=== PATIENT | male | born 1990 | race Caucasian/White ===

== ENCOUNTER 2018-01-06 03:05 | Emergency (ER) | payer OTHER ==
[~2018-01-06] VITALS: Ht 177.8 cm; Wt 136.1 kg
[~2018-01-06 03:05] MED LIST: AMOXICILLIN500 MG PO; AMOXIL500 MG PO; CIPRO500 MG PO; CLINDAMYCIN HC300 MG PO; FLAGYL500 MG PO; FLEXERIL10 MG PO; FLEXERIL5 MG PO; HYDROCODONE BIT1 T11 PO; LISINOPRIL5 MG PO; LOMOTIL 0.025 M1 TA1 PO; MEDROL DOSEPAK4 MG PO; MOTRIN800 MG PO; PEPCID20 MG PO; ZOFRAN ODT4 MG SL
[2018-01-06] MEDS ORDERED: SEPTDS PO ×2 (03:35→03:55)
[2018-01-06] MEDS ORDERED: DOXYCYCLINE HY100 M3 PO (03:35)
[2018-01-06] MEDS ORDERED: VIBRAMYCIN100 MG PO (03:55)
== END 2018-01-06 04:23 | disposition home or self-care (01) ==
LOC: ED 03:05
DX: S40.261A Insect bite (nonvenomous) of right shoulder, initial encounter (principal); W57.XXXA Bitten or stung by nonvenomous insect and other nonvenomous arthropods, initial encounter; Y93.89 Activity, other specified; Y92.89 Other specified places as the place of occurrence of the external cause; Y99.8 Other external cause status

== ENCOUNTER 2019-04-19 20:20 | Emergency (ER) | payer OTHER ==
[~2019-04-19] VITALS: Ht 177.8 cm; Wt 147.4 kg
[~2019-04-19 20:20] MED LIST changes: +DOXYCYCLINE HY100 M3 PO; +SEPTDS PO; +VIBRAMYCIN100 MG PO
[2019-04-19] MEDS ORDERED: AMOXICILLIN500 M2 PO (22:43)
== END 2019-04-19 23:00 | disposition home or self-care (01) ==
LOC: ED 20:20
DX: J02.9 Acute pharyngitis, unspecified (principal); H92.03 Otalgia, bilateral; I10 Essential (primary) hypertension; Z79.2 Long term (current) use of antibiotics; Z79.899 Other long term (current) drug therapy

== ENCOUNTER 2019-06-09 11:26 | Emergency (ER) | payer OTHER ==
[~2019-06-09 11:26] MED LIST changes: +AMOXICILLIN500 M2 PO
[2019-06-09] MEDS ORDERED: METHOCARBAMOL500 M1 PO (13:43)
[2019-06-09] MEDS ORDERED: MEDROL DOSEPAK4 MG PO (13:43)
== END 2019-06-09 13:45 | disposition home or self-care (01) ==
LOC: ED 11:26
DX: S16.1XXA Strain of muscle, fascia and tendon at neck level, initial encounter (principal); Z79.2 Long term (current) use of antibiotics; Z79.899 Other long term (current) drug therapy; V89.2XXA Person injured in unspecified motor-vehicle accident, traffic, initial encounter; Y93.I9 Activity, other involving external motion; Y92.488 Other paved roadways as the place of occurrence of the external cause; Y99.8 Other external cause status

== ENCOUNTER 2021-02-20 11:33 | Emergency (ER) | payer BC ==
[~2021-02-20] VITALS: Wt 145.1 kg
[~2021-02-20 11:33] MED LIST changes: +METHOCARBAMOL500 M1 PO
[2021-02-20 12:10] LABS: BILIRUBIN Negative (Negative); BLOOD Negative (Negative); CLARITY Clear (Clear); COLOR Yellow (Yellow); GLUCOSE Negative (Negative); KETONE Negative (Negative); LEUKO ESTERASE Negative (Negative); NITRITE Negative (Negative); PH 6.5 (4.5-8.0); UROBILINOGEN 0.2 E.U./dl (0.0-1.0)
[2021-02-20 12:17] LABS: BACTERIA TRACE; EPITHELIAL CELLS 0-2; MUCOUS 1+
[2021-02-20 12:22] LABS: BASO # 0.1 10*3/uL (0.0-0.1); BASO % 0.6 % (0.0-1.0); EOS # 0.1 10*3/uL (0.0-0.4); EOS % 1.4 % (1.0-4.0); HEMATOCRIT 47.7 % (42.0-52.0); LYMPH # 2.3 10*3/uL (1.3-4.4); LYMPH % 28.5 % (27.0-41.0); MEAN CELL VOLUME 90.2 fl (80.0-94.0); MEAN CORPUSCULAR HGB CONC 34.4 g/dl (33.0-37.0); MEAN PLATELET VOLUME 10.1 fl (9.6-12.3); MONO # 0.5 10*3/uL (0.1-1.0); MONO % 5.7 % (3.0-9.0); NEUT # 5.1 10*3/uL (2.3-7.9); NEUT % 63.3 % (47.0-73.0); PLATELET COUNT AUTOMATED 281 10*3/uL (130-400); RED BLOOD COUNT 5.29 10*6/uL (4.50-5.90); RED CELL DISTRI WIDTH 12.5 % (0-14.5); WHITE BLOOD COUNT 8.1 10*3/uL (4.8-10.8)
[2021-02-20 12:38] LABS: ALKALINE PHOSPHATASE 73 U/L (45-117); BUN 13 mg/dl (7-24); CHLORIDE 104 mmol/L (98-107); CREATININE 0.77 mg/dL (0.70-1.30); LIPASE 81 U/L (73-393); SGOT/AST 53 IU/L (3-35); SGPT/ALT 125 U/L (12-78); SODIUM 139 mmol/L (136-145); TOTAL PROTEIN 7.8 gm/dL (6.4-8.2)
== END 2021-02-20 15:21 | disposition home or self-care (01) ==
LOC: ED 11:33
PROVIDERS: Nurse Practitioner Family
DX: S39.011A Strain of muscle, fascia and tendon of abdomen, initial encounter (principal); K76.0 Fatty (change of) liver, not elsewhere classified; F17.200 Nicotine dependence, unspecified, uncomplicated; X58.XXXA Exposure to other specified factors, initial encounter; Y93.89 Activity, other specified; Y92.89 Other specified places as the place of occurrence of the external cause; Y99.8 Other external cause status

== ENCOUNTER 2021-03-17 14:49 | Emergency (ER) | payer OTHER, BC ==
[~2021-03-17] VITALS: Wt 145.1 kg
[2021-03-17] MEDS ORDERED: IBUPROFEN600 MG PO (19:20)
== END 2021-03-17 19:25 | disposition home or self-care (01) ==
LOC: ED 14:49
DX: M25.561 Pain in right knee (principal)

== ENCOUNTER → 2021-04-04 | Outpatient (CLI) | payer BC ==
[~2021-04-04] MED LIST changes: +IBUPROFEN600 MG PO
== END | disposition home or self-care (01) ==
LOC: MRI 09:30
PROVIDERS: ATTEND Orthopaedic Surgery
DX: M94.261 Chondromalacia, right knee (principal)

== ENCOUNTER → 2021-04-20 | Outpatient (CLI) | payer BC ==
[2021-04-20 13:04] LABS: HEMATOCRIT 47.3 % (42.0-52.0); MEAN CELL VOLUME 88.1 fl (80.0-94.0); MEAN CORPUSCULAR HGB 31.1 pg (27.0-31.0); MEAN CORPUSCULAR HGB CONC 35.3 g/dl (33.0-37.0); MEAN PLATELET VOLUME 9.7 fl (9.6-12.3); RED BLOOD COUNT 5.37 10*6/uL (4.50-5.90); RED CELL DISTRI WIDTH 12.2 % (0-14.5); WHITE BLOOD COUNT 7.2 10*3/uL (4.8-10.8)
[2021-04-20 13:30] LABS: ALBUMIN 4.2 gm/dl (3.1-4.5); ALKALINE PHOSPHATASE 73 U/L (45-117); BUN 13 mg/dl (7-24); CHLORIDE 108 mmol/L (98-107); CHOLESTEROL 251 mg/dL (<200); CREATININE 0.71 mg/dL (0.70-1.30); FREE T4 0.92 ng/dl (0.76-1.46); LDL CHOLESTEROL 169 mg/dL (9-159); SGOT/AST 56 IU/L (3-35); SGPT/ALT 128 U/L (12-78); SODIUM 138 mmol/L (136-145); TOTAL PROTEIN 7.8 gm/dL (6.4-8.2); TRIGLYCERIDES 225 mg/dl (<150)
== END | disposition home or self-care (01) ==
LOC: LAB 12:43
PROVIDERS: ATTEND Family Medicine
DX: I10 Essential (primary) hypertension (principal); E74.9 Disorder of carbohydrate metabolism, unspecified; K76.0 Fatty (change of) liver, not elsewhere classified; E66.9 Obesity, unspecified; R53.83 Other fatigue; E78.00 Pure hypercholesterolemia, unspecified

== ENCOUNTER 2022-08-24 04:43 | Emergency (ER) | payer OTHER ==
[~2022-08-24] VITALS: Ht 177.8 cm; Wt 111.1 kg
[2022-08-24] MEDS ORDERED: MEDROL DOSEPAK4 MG PO (06:34)
[2022-08-24] MEDS ORDERED: METHOCARBAMOL750 M1 PO (06:34)
== END 2022-08-24 06:41 | disposition home or self-care (01) ==
LOC: ED 04:43
DX: S16.1XXA Strain of muscle, fascia and tendon at neck level, initial encounter (principal); Z98.890 Other specified postprocedural states; I10 Essential (primary) hypertension; X50.0XXA Overexertion from strenuous movement or load, initial encounter; Y93.89 Activity, other specified; Y92.89 Other specified places as the place of occurrence of the external cause; Y99.0 Civilian activity done for income or pay

== ENCOUNTER → 2022-10-05 | Outpatient (CLI) | payer OTHER ==
[~2022-10-05] MED LIST changes: +METHOCARBAMOL750 M1 PO
== END | disposition home or self-care (01) ==
LOC: US 16:59
PROVIDERS: ATTEND Family Medicine
DX: I86.1 Scrotal varices (principal)